=== PATIENT | female | born 1950 | race Caucasian/White ===

== ENCOUNTER → 2016-06-15 | Outpatient (CLI) | payer MEDICARE, OTHER | END | disposition home or self-care (01) | LOC: GMAL 10:31 | PROVIDERS: ATTEND Family Medicine | DX: D51.3 Other dietary vitamin B12 deficiency anemia (principal); R53.81 Other malaise; E55.9 Vitamin D deficiency, unspecified ==

== ENCOUNTER → 2016-07-27 | Outpatient (CLI) | payer MEDICARE, OTHER | END | disposition home or self-care (01) | LOC: LAB.O 10:09 | PROVIDERS: ATTEND Family Medicine | DX: A08.8 Other specified intestinal infections (principal); A08.39 Other viral enteritis ==

== ENCOUNTER → 2016-11-04 | Outpatient (CLI) | payer MEDICARE, OTHER | END | disposition home or self-care (01) | LOC: GMAL 10:37 | PROVIDERS: ATTEND Family Medicine | DX: D51.3 Other dietary vitamin B12 deficiency anemia (principal); R53.81 Other malaise; E55.9 Vitamin D deficiency, unspecified ==

== ENCOUNTER → 2016-12-06 | Outpatient (CLI) | payer MEDICARE, OTHER ==
--- NOTE | 2016-12-06 14:00 | MRI ---
EXAM DESCRIPTION: Cervical Spine CLINICAL HISTORY: CERVICALGIA. Pain radiating into the left arm. Tingling in left hand. COMPARISON: None Available. TECHNIQUE: MRI of the cervical spine is performed according to our usual protocol. FINDINGS: There is reversal of the normal cervical lordosis. Vertebral body stature is maintained. There is no acute fracture or destructive osseous lesion. Mild Modic type I endplate changes at C4-C5. Modic type II endplate changes at C5-C6. Craniocervical junction and the cervical spinal cord are unremarkable. C2-3: No significant findings. C3-4: Mild facet hypertrophy and mild uncovertebral spurring. No spinal canal or neural foraminal stenosis. C4-5: Disc desiccation with moderate disc narrowing. Mild facet hypertrophy and uncovertebral spurring. 3 mm posterior disc osteophyte complex which effaces the ventral aspect of the thecal sac. Moderate spinal canal stenosis with residual AP diameter of the thecal sac measuring 6.8 mm. Severe bilateral neural foraminal stenosis. C5-6: Disc desiccation with moderate disc narrowing. Mild facet hypertrophy and uncovertebral spurring. 3 mm posterior disc osteophyte complex which effaces the ventral aspect of the thecal sac. Material abuts the ventral aspect of the spinal cord. Moderate to severe spinal canal stenosis with residual AP diameter of the thecal sac measuring 6.5 mm. Severe left greater than right neural foraminal stenosis. C6-7: Disc desiccation with mild disc narrowing. Mild facet hypertrophy and mild uncovertebral spurring. 2 mm posterior disc osteophyte complex which flattens the ventral aspect of the thecal sac. Mild spinal canal stenosis with residual AP diameter of the thecal sac measuring 7.9 mm. Mild bilateral neural foraminal stenosis. C7-T1: No significant findings. IMPRESSION: 1. Multilevel spondylitic and facet degenerative changes throughout the cervical spine as described above. The findings are most pronounced at C5-C6 where there is moderate to severe spinal canal stenosis and severe left greater than right neural foraminal stenosis. 2. At C4-C5, there is moderate spinal canal stenosis and severe bilateral neural foraminal stenosis. 3. Other levels as detailed above. Electronically signed by: Javan Waite MD 12/06/2016 1:59 PM CDT
== END | disposition home or self-care (01) ==
LOC: MRI 09:44
PROVIDERS: ATTEND Family Medicine
DX: M47.892 Other spondylosis, cervical region (principal); M54.2 Cervicalgia

== ENCOUNTER 2017-01-14 12:53 | Emergency (ER) | payer MEDICARE, OTHER ==
[2017-01-14 13:43] VITALS: TEMP 98.9
--- NOTE | 2017-01-14 13:52 | ED.PDOC ---
History of Present Illness - General Chief Complaint: Lower Extremity Injury Stated Complaint: pain left lower extremity Time Seen by Provider: 01/14/17 13:52 Source: patient Exam Limitations: no limitations - History of Present Illness Initial Comments: Kajal Randall 66 y/o female stated that she had been having burning pains back of her left thigh which was getting worse for the last 2 weeks .Stated had epidural steroid injection on her c-spine 12/26/[facility] due to spinal stenosis with pain /tingling on arms and fingers mostly left side but stated not better.She was sent to ER for evaluation of possible blood clots on her legs.No bowel or bladder dysfunctions. Occurred: other - 2 weeks ago Pain - Lower Extremity: moderate: Left Thigh/Hip Method of Injury: unknown Improving Factors: rest Worsening Factors: movement Allergies/Adverse Reactions: Allergies NO KNOWN ALLERGY Allergy (Verified 04/27/12 13:39) Home Medications: Ambulatory Orders Alprazolam 0.5 mg PO .Q6H PRN #0 tab 09/14/13 Alprazolam [Xanax] 0.25 mg PO .Q6H #0 tab 09/14/13 Alprazolam [Xanax] 0.25 mg PO HS #0 tab 09/14/13 Aspirin [Aspirin EC] 325 mg PO DAILY #0 tab 09/14/13 Clopidogrel Bisulfate [Plavix] 75 mg PO .AM #0 tab 09/14/13 Acetaminophen W/ Codeine [Tylenol w/Codeine 300-30 mg] 1 tab PO Q4HR PRN #20 tab 01/14/17 Baclofen 20 mg PO BID #30 tab 01/14/17 Review of Systems - Review of Systems Constitutional: States: no symptoms reported EENTM: States: no symptoms reported Respiratory: States: no symptoms reported Cardiology: States: no symptoms reported Gastrointestinal/Abdominal: States: no symptoms reported Genitourinary: States: no symptoms reported Musculoskeletal: States: see HPI Neurological: States: no symptoms reported Past Medical History (General) - Patient Medical History Hx Seizures: No Hx Stroke: No Hx Asthma: No Hx of COPD: No Hx Cardiac Disorders: No Hx Pacemaker: No Hx Hypertension: No Hx Diabetes: No Hx MRSA: No Hx Other PMH: Yes - crest,fibromyalgia,spinal stenosis c-spine Surgical History: gastric bypass, other - foot,knee,hysterectomy - Social History Hx Alcohol Use: No Hx Substance Use: No Hx Physical Abuse: No Hx Emotional Abuse: No - Activities of Daily Living Patient Lives Alone: No - family Family Medical History - Family History Mother Family History: No Known Hx Cardiac Disease: Yes - parents Hx Family Diabetes: Yes - multiple family members Physical Exam - Physical Exam General Appearance: Alert, Anxious, No apparent distress Eyes, Ears, Nose, Throat: PERRL/EOMI, normal ENT inspection Neck: supple, limited range of motion - pain Cardiovascular/Respiratory: regular rate, rhythm, no M/R/G, normal peripheral pulses Gastrointestinal/Abdominal: non-tender, no organomegaly Back: normal inspection, no vertebral tenderness Thigh/Hip: non-tender, no evidence of injury Leg: non-tender, no evidence of injury Knee: non-tender, no evidence of injury Ankle: non-tender, no evidence of injury Foot: non-tender, no evidence of injury DTR - Lower Extremities: 2+: Patellar, left, Patellar, right Neuro/Tendon: normal sensation, normal motor functions Mental Status: alert, oriented x 3 Skin: normal color, cyanosis Progress - Progress Progress: 01/14/17 14:21 Vital Signs - 8 hr 01/14/17 13:20 Temperature 98.9 F Pulse Rate [ 82 right brachial] Respiratory 16 Rate Blood Pressure 148/94 [right brachial ] O2 Sat by Pulse 95 Oximetry - EKG/XRAY/CT XRAY: lumbar no acute abnormalities Xray Comments: Venous US left leg -NO DVT Departure - Departure Clinical Impression: Lumbar back pain with radiculopathy affecting left lower extremity, Pain of left leg Time of Disposition: 15:48 Disposition: Discharge to Home or Self Care Condition: Fair Departure Forms: ED Discharge - Pt. Copy, Patient Portal Self Enrollment Instructions: DI for Leg Pain, DI for Lumbar Radiculopathy, Lumbar Radiculopathy Referrals: Filipe Lloyd III, MD [Primary Care Provider] - 1-2 Weeks Prescriptions: Acetaminophen W/ Codeine [Tylenol w/Codeine 300-30 mg] 1 tab PO Q4HR PRN #20 tab PRN Reason: Pain Baclofen 20 mg PO BID #30 tab Home Medications: Ambulatory Orders Alprazolam 0.5 mg PO .Q6H PRN #0 tab 09/14/13 Alprazolam [Xanax] 0.25 mg PO .Q6H #0 tab 09/14/13 Alprazolam [Xanax] 0.25 mg PO HS #0 tab 09/14/13 Aspirin [Aspirin EC] 325 mg PO DAILY #0 tab 09/14/13 Clopidogrel Bisulfate [Plavix] 75 mg PO .AM #0 tab 09/14/13 Acetaminophen W/ Codeine [Tylenol w/Codeine 300-30 mg] 1 tab PO Q4HR PRN #20 tab 01/14/17 Baclofen 20 mg PO BID #30 tab 01/14/17 Additional Instructions: Follow up with primary md 01/17/2017 call for appointment
--- NOTE | 2017-01-14 14:33 | RAD ---
EXAM DESCRIPTION: Lumbar Spine 3 Views CLINICAL HISTORY: pain COMPARISON: None Available. TECHNIQUE: AP/lateral/coned-down lateral FINDINGS: There is good alignment of the lumbar spine. There is no fracture or bone lesion. There are no significant degenerative changes observed. IMPRESSION: Normal Study Electronically signed by: Lauro Brown MD 01/14/2017 2:32 PM CDT
--- NOTE | 2017-01-14 15:28 | US ---
EXAM DESCRIPTION: Venous,Lower Extremity LT CLINICAL HISTORY: left leg pain COMPARISON: None Available. TECHNIQUE: Left lower extremity venous duplex FINDINGS: There is no DVT identified. There is normal color flow observed with good flow augmentation. All deep veins compress normally. IMPRESSION: Negative for DVT Electronically signed by: Filipe Pacheco MD 01/14/2017 3:26 PM CDT
[2017-01-14] MEDS ORDERED: HYDROcodone 10MG/APAP 325MG 1 EA TAB PO ONE (15:42)
[2017-01-14] MEDS ORDERED: KETOROLAC TROMETHAMINE INJ 30 MG/ML VIAL IM ONE (15:42)
[2017-01-14] MEDS ORDERED: ORPHENADRINE CITRATE 30 MG/ML AMP IM ONE (15:42)
[2017-01-14 16:27] VITALS: BP 122/82; O2SAT 95
== END 2017-01-14 16:27 | disposition home or self-care (01) ==
LOC: ER 12:53
DX: M54.5 Low back pain (principal); M54.16 Radiculopathy, lumbar region; Z79.82 Long term (current) use of aspirin; Z79.02 Long term (current) use of antithrombotics/antiplatelets; Z98.84 Bariatric surgery status
CPT/HCPCS: 72100; 93971; J1885; J2360

== ENCOUNTER → 2017-01-19 | Outpatient (CLI) | payer MEDICARE, OTHER ==
--- NOTE | 2017-01-20 14:06 | MRI ---
EXAM DESCRIPTION: Lumbar Spine w/o Contrast CLINICAL HISTORY: RADICULOPATHY, LUMBAR REGION COMPARISON: MRI scan cervical spine 12/06/2016. X-ray lumbar spine 01/14/2017. TECHNIQUE: Multiplanar, multiple standard sequences, non contrast MRI, lumbar spine. FINDINGS: L5-S1: Disc desiccation. Posterior midline and left paracentral four mm bulge, contacting the descending left S1 nerve at the level of the facet. Moderate left paracentral canal narrowing. Facets and ligaments unremarkable. Mild narrowing of the bilateral foramina. L4-5: Disc desiccation. Posterior midline 3 mm bulge abutting the thecal sac. Mild to moderate canal narrowing. Bilateral moderate foraminal narrowing with disc contacting the exiting L4 nerves bilaterally. Bilateral flavum ligament hypertrophy. Disc space preserved. Minimal hypertrophy in the left facet. L3-4: Disc desiccation. No significant disc bulging. Bilateral posterior flavum ligament hypertrophy. 9. Bilateral mild foraminal narrowing. Disc space preserved. L2-3: Normal signal in the disc and disc space preserved. Minimal hypertrophy of the posterior flavum ligaments. Canal and foramina are patent. L1-2: Minimal disc desiccation. Disc space preserved. No disc bulging. Minimal hypertrophy of the flavum ligaments. T12-L1: No disc desiccation. Disc space preserved. Canal and foramina are patent. Conus terminates at this level. Paravertebral soft tissues are unremarkable. Normal marrow signal in the remaining vertebral bodies and the posterior elements. Vertebral bodies are not compressed at any level. IMPRESSION: 1. Left posterior focal bulge or small protrusion of the L5-S1 desiccated disc, abutting the descending left S1 nerve. Correlate for radiculopathy. 2. Posterior midline bulge of the desiccated L4-5 disc contacting the thecal sac. Electronically signed by: Aaron Wetzel MD 01/20/2017 2:04 PM CDT
== END ==
LOC: MRI 13:57
PROVIDERS: ATTEND Physical Medicine & Rehabilitation
DX: M51.16 Intervertebral disc disorders with radiculopathy, lumbar region (principal)

== ENCOUNTER 2018-01-03 21:47 | Emergency (ER) | payer MEDICARE, BC ==
--- NOTE | 2018-01-03 23:29 | ED.PDOC ---
History of Present Illness - General Chief Complaint: Abdominal Pain Stated Complaint: abdominal pain Time Seen by Provider: 01/03/18 23:12 Information Source: patient Exam Limitations: no limitations - History of Present Illness Initial Comments: Kajal Randall 67 y/o female came to ER with sharp mid abdominal pains since this morning no nausea/vomiting able to eat a little bit and had several loose stool yesterday.Stated she had skin abscess genital area and took oral antibiotics Bactrim and was also given Rocephin injection IM this am at her Md' s office..Stated pains radiated to upper chest both shoulders and mid back. Also took multiple doses of Ibuprofen/Tylenol for pain on her skin abscess this am. Abdominal Pain Onset Location: other - mid abdomen Pain Radiation: shoulder, chest, back Quality: sharpness Timing/Duration: 7-24 hours Improving Factors: nothing Worsening Factors: nothing Associated Symptoms: other - see hpi Review of Systems - Review of Systems Constitutional: States: no symptoms reported EENTM: States: no symptoms reported Respiratory: States: no symptoms reported Cardiology: States: see HPI Gastrointestinal/Abdominal: States: see HPI Genitourinary: States: no symptoms reported Musculoskeletal: States: joint pain - chronic joint pains Past Medical History (General) - Patient Medical History Hx Seizures: No Hx Stroke: No Hx Asthma: No Hx of COPD: No Hx Cardiac Disorders: No Hx Pacemaker: No Hx Hypertension: No Hx Diabetes: No Hx MRSA: No Hx Other PMH: Yes - CREST,fibromyalgia,spinal stenosis c- spine Surgical History: gastric bypass, other - hysterectomy,foot ,knee - Social History Hx Alcohol Use: No Hx Substance Use: No Hx Physical Abuse: No Hx Emotional Abuse: No Family Medical History - Family History Mother Family History: No Known Hx Cardiac Disease: Yes - parents Hx Family Diabetes: Yes - multiple family members Hx Family;Other: aortic aneurysm Physical Exam - Physical Exam General Appearance: Alert, Comfortable, No apparent distress Eyes, Ears, Nose, Throat Exam: normal ENT inspection Neck: non-tender, supple, normal inspection Respiratory: chest non-tender, lungs clear, normal breath sounds, no respiratory distress Cardiovascular/Chest: normal peripheral pulses, regular rate, rhythm, no murmur Peripheral Pulses: No deficit Gastrointestinal/Abdominal: non tender, soft, no organomegaly Back Exam: normal inspection, no CVA tenderness, no vertebral tenderness Extremity: normal inspection, no calf tenderness, pedal edema - 2 + Neurologic: alert, oriented x 3 Skin Exam: normal color, warm/dry Lymphatic: no adenopathy Progress - Progress Progress: 01/04/18 01:26 Vital Signs - 8 hr 01/04/18 00:03 Temperature 99.3 F Pulse Rate [ 76 Right] Respiratory 18 Rate Blood Pressure 163/85 [Left Arm] O2 Sat by Pulse 96 Oximetry 01/04/18 05:28 abdomen less painful;she stated it might have been the bactrim and nsaid that she took which cause her abdominal pain symptoms 01/04/18 05:28 - Results/Orders Results/Orders: 01/03/18 23:30 URINALYSIS Stat 01/04/18 00:11 B-TYPE NATRIURETIC PEPTIDE/BNP Stat CARDIAC ENZYME GROUP Stat 01/04/18 00:56 EKG Assessment ONCE 01/04/18 01:00 EKG STAT 01/04/18 01:01 D-DIMER,QUANTITATIVE Stat 01/04/18 01:24 CTA Chest [CT] Stat Laboratory Results - last 24 hr 01/04/18 01/04/18 01/04/18 00:11 00:12 00:12 WBC 5.9 RBC 5.15 Hgb 15.4 Hct 45.8 MCV 88.8 MCH 29.8 MCHC 33.6 RDW 13.3 Plt Count 247 MPV 6.8 L Absolute Neuts (auto) 4.40 Absolute Lymphs (auto) 0.90 L Absolute Monos (auto) 0.50 Absolute Eos (auto) 0.10 Absolute Basos (auto) 0.00 Neutrophils % 73.7 Lymphocytes % 15.3 L Monocytes % 8.5 Eosinophils % 1.9 Basophils % 0.6 Sodium Potassium Chloride Carbon Dioxide Anion Gap BUN Creatinine BUN/Creatinine Ratio Random Glucose Serum Osmolality Calcium Total Bilirubin AST ALT Alkaline Phosphatase Creatine Kinase 45 CK-MB (CK-2) 1.0 CK-MB (CK-2) % Not Reportable Troponin I < 0.02 Serum Total Protein Albumin Globulin Albumin/Globulin Ratio Urine Color Yellow Urine Appearance Clear Urine pH 6.0 Ur Specific Humble 1.020 Urine Protein Negative Urine Glucose (UA) Negative Urine Ketones Negative Urine Blood Large H Urine Nitrite Negative Urine Bilirubin Negative Urine Urobilinogen 1.0 Ur Leukocyte Esterase Negative Urine RBC 40-50 H Urine WBC 5-10 H Ur Epithelial Cells 1-3 Urine Bacteria Rare 01/04/18 00:12 WBC RBC Hgb Hct MCV MCH MCHC RDW Plt Count MPV Absolute Neuts (auto) Absolute Lymphs (auto) Absolute Monos (auto) Absolute Eos (auto) Absolute Basos (auto) Neutrophils % Lymphocytes % Monocytes % Eosinophils % Basophils % Sodium 138 Potassium 4.6 Chloride 101 Carbon Dioxide 25 Anion Gap 16.6 BUN 19 H Creatinine 0.87 BUN/Creatinine Ratio 21.8 H Random Glucose 119 H Serum Osmolality 279.1 Calcium 9.1 Total Bilirubin 0.9 AST 707 H ALT 566 H Alkaline Phosphatase 57 Creatine Kinase CK-MB (CK-2) CK-MB (CK-2) % Troponin I Serum Total Protein 7.1 Albumin 3.8 Globulin 3.3 Albumin/Globulin Ratio 1.2 Urine Color Urine Appearance Urine pH Ur Specific Humble Urine Protein Urine Glucose (UA) Urine Ketones Urine Blood Urine Nitrite Urine Bilirubin Urine Urobilinogen Ur Leukocyte Esterase Urine RBC Urine WBC Ur Epithelial Cells Urine Bacteria 01/04/18 01:00 EKG STAT 01/04/18 02:48 Sodium Chloride 0.9% 1000ML [Ns 1000 ml] 1,000 ml IVS ONCE 01/04/18 03:12 TROPONIN-I Stat Laboratory Results - last 24 hr 01/04/18 01/04/18 01/04/18 00:11 00:12 00:12 WBC 5.9 RBC 5.15 Hgb 15.4 Hct 45.8 MCV 88.8 MCH 29.8 MCHC 33.6 RDW 13.3 Plt Count 247 MPV 6.8 L Absolute Neuts (auto) 4.40 Absolute Lymphs (auto) 0.90 L Absolute Monos (auto) 0.50 Absolute Eos (auto) 0.10 Absolute Basos (auto) 0.00 Neutrophils % 73.7 Lymphocytes % 15.3 L Monocytes % 8.5 Eosinophils % 1.9 Basophils % 0.6 D-Dimer, Quantitative Sodium Potassium Chloride Carbon Dioxide Anion Gap BUN Creatinine BUN/Creatinine Ratio Random Glucose Serum Osmolality Calcium Total Bilirubin AST ALT Alkaline Phosphatase Creatine Kinase 45 CK-MB (CK-2) 1.0 CK-MB (CK-2) % Not Reportable Troponin I < 0.02 B-Natriuretic Peptide 18.7 Serum Total Protein Albumin Globulin Albumin/Globulin Ratio Lipase Urine Color Yellow Urine Appearance Clear Urine pH 6.0 Ur Specific Humble 1.020 Urine Protein Negative Urine Glucose (UA) Negative Urine Ketones Negative Urine Blood Large H Urine Nitrite Negative Urine Bilirubin Negative Urine Urobilinogen 1.0 Ur Leukocyte Esterase Negative Urine RBC 40-50 H Urine WBC 5-10 H Ur Epithelial Cells 1-3 Urine Bacteria Rare 01/04/18 01/04/18 01/04/18 00:12 01:01 02:33 WBC RBC Hgb Hct MCV MCH MCHC RDW Plt Count MPV Absolute Neuts (auto) Absolute Lymphs (auto) Absolute Monos (auto) Absolute Eos (auto) Absolute Basos (auto) Neutrophils % Lymphocytes % Monocytes % Eosinophils % Basophils % D-Dimer, Quantitative 1.88 H* Sodium 138 Potassium 4.6 Chloride 101 Carbon Dioxide 25 Anion Gap 16.6 BUN 19 H Creatinine 0.87 BUN/Creatinine Ratio 21.8 H Random Glucose 119 H Serum Osmolality 279.1 Calcium 9.1 Total Bilirubin 0.9 AST 707 H ALT 566 H Alkaline Phosphatase 57 Creatine Kinase CK-MB (CK-2) CK-MB (CK-2) % Troponin I B-Natriuretic Peptide Serum Total Protein 7.1 Albumin 3.8 Globulin 3.3 Albumin/Globulin Ratio 1.2 Lipase 21 L Urine Color Urine Appearance Urine pH Ur Specific Humble Urine Protein Urine Glucose (UA) Urine Ketones Urine Blood Urine Nitrite Urine Bilirubin Urine Urobilinogen Ur Leukocyte Esterase Urine RBC Urine WBC Ur Epithelial Cells Urine Bacteria Discuss test result with patient normal ekg and cardiac enzymes;but LFT elevated that she needs to see GI specialist for further evaluation of abnormal liver test;also discuss result of Ct-chest;abdo/pelvis showing no acute findings for her abdominal pain symptoms.Also talked to her about blood in urine stated it came out from her skin abscess that popped yesterday which is still bleeding. 01/04/18 01:00 EKG STAT 01/04/18 04:00 ACETAMINOPHEN Stat Laboratory Results - last 24 hr 01/04/18 01/04/18 01/04/18 00:11 00:12 00:12 WBC 5.9 RBC 5.15 Hgb 15.4 Hct 45.8 MCV 88.8 MCH 29.8 MCHC 33.6 RDW 13.3 Plt Count 247 MPV 6.8 L Absolute Neuts (auto) 4.40 Absolute Lymphs (auto) 0.90 L Absolute Monos (auto) 0.50 Absolute Eos (auto) 0.10 Absolute Basos (auto) 0.00 Neutrophils % 73.7 Lymphocytes % 15.3 L Monocytes % 8.5 Eosinophils % 1.9 Basophils % 0.6 D-Dimer, Quantitative Sodium Potassium Chloride Carbon Dioxide Anion Gap BUN Creatinine BUN/Creatinine Ratio Random Glucose Serum Osmolality Calcium Total Bilirubin AST ALT Alkaline Phosphatase Creatine Kinase 45 CK-MB (CK-2) 1.0 CK-MB (CK-2) % Not Reportable Troponin I < 0.02 B-Natriuretic Peptide 18.7 Serum Total Protein Albumin Globulin Albumin/Globulin Ratio Lipase Urine Color Yellow Urine Appearance Clear Urine pH 6.0 Ur Specific Humble 1.020 Urine Protein Negative Urine Glucose (UA) Negative Urine Ketones Negative Urine Blood Large H Urine Nitrite Negative Urine Bilirubin Negative Urine Urobilinogen 1.0 Ur Leukocyte Esterase Negative Urine RBC 40-50 H Urine WBC 5-10 H Ur Epithelial Cells 1-3 Urine Bacteria Rare 01/04/18 01/04/18 01/04/18 00:12 01:01 02:33 WBC RBC Hgb Hct MCV MCH MCHC RDW Plt Count MPV Absolute Neuts (auto) Absolute Lymphs (auto) Absolute Monos (auto) Absolute Eos (auto) Absolute Basos (auto) Neutrophils % Lymphocytes % Monocytes % Eosinophils % Basophils % D-Dimer, Quantitative 1.88 H* Sodium 138 Potassium 4.6 Chloride 101 Carbon Dioxide 25 Anion Gap 16.6 BUN 19 H Creatinine 0.87 BUN/Creatinine Ratio 21.8 H Random Glucose 119 H Serum Osmolality 279.1 Calcium 9.1 Total Bilirubin 0.9 AST 707 H ALT 566 H Alkaline Phosphatase 57 Creatine Kinase CK-MB (CK-2) CK-MB (CK-2) % Troponin I B-Natriuretic Peptide Serum Total Protein 7.1 Albumin 3.8 Globulin 3.3 Albumin/Globulin Ratio 1.2 Lipase 21 L Urine Color Urine Appearance Urine pH Ur Specific Humble Urine Protein Urine Glucose (UA) Urine Ketones Urine Blood Urine Nitrite Urine Bilirubin Urine Urobilinogen Ur Leukocyte Esterase Urine RBC Urine WBC Ur Epithelial Cells Urine Bacteria 01/04/18 04:00 WBC RBC Hgb Hct MCV MCH MCHC RDW Plt Count MPV Absolute Neuts (auto) Absolute Lymphs (auto) Absolute Monos (auto) Absolute Eos (auto) Absolute Basos (auto) Neutrophils % Lymphocytes % Monocytes % Eosinophils % Basophils % D-Dimer, Quantitative Sodium Potassium Chloride Carbon Dioxide Anion Gap BUN Creatinine BUN/Creatinine Ratio Random Glucose Serum Osmolality Calcium Total Bilirubin AST ALT Alkaline Phosphatase Creatine Kinase CK-MB (CK-2) CK-MB (CK-2) % Troponin I < 0.02 B-Natriuretic Peptide Serum Total Protein Albumin Globulin Albumin/Globulin Ratio Lipase Urine Color Urine Appearance Urine pH Ur Specific Humble Urine Protein Urine Glucose (UA) Urine Ketones Urine Blood Urine Nitrite Urine Bilirubin Urine Urobilinogen Ur Leukocyte Esterase Urine RBC Urine WBC Ur Epithelial Cells Urine Bacteria Abnormal Lab Results 01/04/18 01/04/18 01/04/18 00:12 00:12 00:12 MPV 6.8 L Absolute Lymphs (auto) 0.90 L Lymphocytes % 15.3 L D-Dimer, Quantitative BUN 19 H BUN/Creatinine Ratio 21.8 H Random Glucose 119 H AST 707 H ALT 566 H Lipase Urine Blood Large H Urine RBC 40-50 H Urine WBC 5-10 H Acetaminophen 01/04/18 01/04/18 01/04/18 01:01 02:33 04:00 MPV Absolute Lymphs (auto) Lymphocytes % D-Dimer, Quantitative 1.88 H* BUN BUN/Creatinine Ratio Random Glucose AST ALT Lipase 21 L Urine Blood Urine RBC Urine WBC Acetaminophen < 10.0 L - EKG/XRAY/CT EKG: Sinus, no ST T wave changes Comments: HR-86;NSR XRAY: chest - tortousity aorta O/W no acute abnormalities CT: ABD/P- no acute findings noted CT Ordered: Yes - Chest -CTA-no PE no aneurysm Departure - Departure Clinical Impression: Abnormal liver enzymes, Elevated d-dimer Abdominal pain Qualifiers: Abdominal location: upper abdomen, unspecified Qualified Code(s): R10.10 - Upper abdominal pain, unspecified Chest pain Qualifiers: Chest pain type: unspecified Qualified Code(s): R07.9 - Chest pain, unspecified Hematuria Qualifiers: Hematuria type: unspecified type Qualified Code(s): R31.9 - Hematuria, unspecified Time of Disposition: Disposition: Discharge to Home or Self Care Departure Forms: ED Discharge - Pt. Copy, Patient Portal Self Enrollment Instructions: DI for Abdominal Pain-Adult Referrals: Filipe Lloyd III, MD [Primary Care Provider] - 1-2 Weeks Home Medications: Ambulatory Orders Alprazolam 0.5 mg PO .Q6H PRN #0 tab 05/23/14 Alprazolam [Xanax] 0.25 mg PO .Q6H #0 tab 09/14/13 Alprazolam [Xanax] 0.25 mg PO HS #0 tab 09/14/13 Aspirin [Aspirin EC] 325 mg PO DAILY #0 tab 09/14/13 Clopidogrel Bisulfate [Plavix] 75 mg PO .AM #0 tab 09/14/13 Acetaminophen W/ Codeine [Tylenol w/Codeine 300-30 mg] 1 tab PO Q4HR PRN #20 tab 01/14/17 Baclofen 20 mg PO BID #30 tab 01/14/17 Additional Instructions: Follow up with primary Md 05 January 2018 call Md's office today;Return to ER as needed;Avoid taking more than required dose of Tylenol and Ibuprofen as written on package insert May take Ranitidine-75 mg(over the counter) 2 tablets am/pm
--- NOTE | 2018-01-04 00:27 | RAD ---
EXAM DESCRIPTION: Chest,1 View CLINICAL HISTORY: 67 years Female, abd pain COMPARISON: AP chest September 13, 2013 FINDINGS: No consolidation. No pneumothorax. No significant pleural effusion. Cardiac silhouette appears normal in size. Aortic atherosclerosis and tortuosity is present Degenerative changes of the spine noted. IMPRESSION: No acute findings. Electronically signed by: Khoa Driscoll MD 01/04/2018 12:25 AM CDT
[2018-01-04] MEDS ORDERED: MORPHINE SULFATE INJ 10 MG/ML VIAL IV ONE ×2 (01:36→03:12)
[2018-01-04] MEDS ORDERED: PANTOPRAZOLE INJECTION 80 MG in SODIUM CHLORIDE 0.9% 100ML 80 ML IVPB ONE (01:38)
[2018-01-04] MEDS ORDERED: SODIUM CHLORIDE 0.9% 100ML 100 ML IVPB ONE (01:46)
[2018-01-04] MEDS ORDERED: PANTOPRAZOLE SODIUM IV 40 MG VIAL ONE (01:46)
[2018-01-04] MEDS ORDERED: ONDANSETRON INJ 4 MG/2 ML VIAL ONE (01:46)
[2018-01-04] MEDS ORDERED: ONDANSETRON INJ 4 MG/2 ML VIAL IV ONE (01:48)
[2018-01-04] MEDS ORDERED: SODIUM CHLORIDE 0.9% 1000ML 1,000 ML IVS ONE (02:48)
--- NOTE | 2018-01-04 02:51 | CT ---
EXAM: CT CHEST ANGIOGRAPHY WITH IV CONTRAST, CT ABDOMEN PELVIS WITH IV CONTRAST HISTORY: chest pains/intersacapular pain r/o thoracic AA COMPARISON: CT abdomen pelvis March 01, 2016 TECHNIQUE: Multiple helical axial tomographic images were obtained of the chest following administration of intravenous contrast per angiographic protocol. Subsequent axial images were obtained of the abdomen and pelvis. Coronal, sagittal, and MIP reformatted images of the chest were obtained. Coronal and sagittal reformatted images of the abdomen and pelvis were obtained. This exam was performed according to our departmental dose-optimization program, which includes automated exposure control, adjustment of the mA and/or kV according to patient size and/or use of iterative reconstruction technique. FINDINGS: CT CHEST: Thyroid gland: unremarkable. Axilla: unremarkable. Pulmonary arteries: Evaluation of the peripheral pulmonary arteries is limited secondary suboptimal contrast opacification. Central pulmonary arteries appear patent. No obvious pulmonary embolism within the main, right/left, lobar, or proximal segmental pulmonary arteries. Aorta: Aortic atherosclerosis is present. No evidence of aortic dissection or aneurysm. Mediastinum: Unremarkable. No adenopathy. Heart: Heart is normal in size. Coronary artery atherosclerosis noted. Lungs/airways: No consolidation. Airways are patent. Mild segmental atelectasis versus scarring in the lung bases noted. Pleural spaces: No significant pleural effusion. No pneumothorax. Osseous: Thoracic spine osteophytes are present. Soft tissues: Unremarkable. CT ABDOMEN PELVIS: Liver: [Homogenous attenuation is noted.] Gallbladder/biliary: [Gallbladder is surgically absent. Common bile duct measures up to 1 cm in width proximally which is nonspecific in the setting of prior cholecystectomy and unchanged.] Pancreas: [Unremarkable. No evidence of ductal enlargement.] Spleen: Appears unremarkable. No splenomegaly. Adrenals: Unremarkable. Kidneys and ureters: [No evidence of hydronephrosis. Normal enhancement.] Bladder: Unremarkable. Pelvic organs: Post hysterectomy changes demonstrated. Bowel: [Postoperative changes of gastric bypass noted. No evidence of bowel obstruction. No bowel wall thickening.] Appendix appears unremarkable. Vasculature: Unremarkable. Peritoneum: No free air. No significant free fluid. Lymph nodes: Unremarkable. Soft tissues: Postoperative changes of the ventral abdominal wall noted. Bones: No acute findings. Mild posterior disc bulging at L4-5 demonstrated with mild central canal narrowing. Impression: No evidence for an acute process within the chest, abdomen, or pelvis. Electronically signed by: Khoa Driscoll MD 01/04/2018 2:50 AM CDT
[2018-01-04] MEDS ORDERED: ALUM & MAG HYDROX-SIMETHICONE 30 ML, LIDOCAINE VISCOUS 2% 15 ML PO ONE ×2 (03:12)
[2018-01-04] MEDS ORDERED: SUCRALFATE 1 GM/10 ML 1 GM UD PO ONE (03:12)
[2018-01-04] MEDS ORDERED: ALUM & MAG HYDROX-SIMETHICONE 30 ML UD ONE (03:54)
[2018-01-04] MEDS ORDERED: LIDOCAINE HCL 2% (MOUTH-THROAT) 15 ML UD ONE (03:54)
[2018-01-04 05:33] VITALS: BP 147/83; TEMP 98.4; O2SAT 98
== END 2018-01-04 05:50 | disposition home or self-care (01) ==
LOC: ER 21:47
DX: R10.10 Upper abdominal pain, unspecified (principal); R07.9 Chest pain, unspecified; R79.89 Other specified abnormal findings of blood chemistry; R31.9 Hematuria, unspecified; M79.7 Fibromyalgia; Z79.82 Long term (current) use of aspirin; Z79.899 Other long term (current) drug therapy; Z98.84 Bariatric surgery status
CPT/HCPCS: 71045; 71275; 74177; 80053; 80329; 81001; 82550; 82553; 83690; 83880; 84484; 85025; 85379; 93005; J2270; J2405; J7030; J7050

== ENCOUNTER → 2018-01-12 | Outpatient (CLI) | payer MEDICARE, BC | LOC: GMAL 11:25 | PROVIDERS: ATTEND Family Medicine | DX: D51.3 Other dietary vitamin B12 deficiency anemia (principal); R53.81 Other malaise; E55.9 Vitamin D deficiency, unspecified; D50.8 Other iron deficiency anemias ==

== ENCOUNTER → 2018-04-12 | Outpatient (CLI) | payer MEDICARE | LOC: GMAL 17:13 | PROVIDERS: ATTEND Family Medicine | DX: R94.5 Abnormal results of liver function studies (principal) ==

== ENCOUNTER → 2018-08-28 | Outpatient (CLI) | payer MEDICARE ==
--- NOTE | 2018-08-28 15:33 | MRI ---
EXAM DESCRIPTION: Lumbar Spine w/o Contrast : Magnetic Resonance Imaging. CLINICAL HISTORY: LOW BACK PAIN COMPARISON: MRI scan lumbar spine without contrast 01/19/2017. TECHNIQUE: Multiplanar, multiple standard sequences, non contrast MRI, lumbar spine. FINDINGS: L5-S1: Disc desiccation with disc space maintained. Tiny posterior midline bulge. Mild canal narrowing. Bilateral moderate foraminal narrowing more right than left. Stable since the prior study. L4-L5: Midline focal protrusion 4 to 5 mm impressing on the midline thecal sac and extrusion below the disc space and L5 endplate effacing the subarticular recess with possible displacement of the descending left L5 nerve. This has progressed since the prior study. Disc bulge and endplate spurs encroaching on the left foramen which is stenotic. Stable since the prior study. Moderate to severe narrowing of the right foramen secondary to bulging disc. Progressed since the prior study. L3-L4: Disc desiccation with disc space maintained. Disc bulge into the left foramen abutting the left L3 nerve. Moderate narrowing of the right foramen. Hypertrophic facet arthrosis and thickened flavum ligaments contributing to moderate canal narrowing. Stable since the prior study. L2-L3: Normal signal in the disc and disc space preserved. Bilateral thickened flavum ligaments the canal is patent. Bilateral foramina are patent. L1-L2: Disc space maintained with minimal disc desiccation. Bilateral thickened flavum ligaments. Canal and foramina are patent. Conus terminates at L1. T12-L1: Normal signal in the disc and disc space maintained. Minimal thickening of the flavum ligaments. Canal and bilateral foramina are patent. L3-S1 levoscoliosis. Paravertebral soft tissues negative.. Otherwise normal marrow signal in the remaining vertebral bodies and the posterior elements. Vertebral bodies are not compressed at any level. IMPRESSION: 1. Bilateral moderate foraminal narrowing more on the right at L5-S1, with posterior midline disc bulge, stable since the prior study. 2. Herniation at L4-5 disc and extrusion below the disc space encroaching on the left subarticular recess and the descending left L5 nerve which is new since the prior study. Also disc bulging into the right foramen causing moderate to severe narrowing has progressed since the prior study. 3. Disc bulge at L3-4 abutting the left L3 nerve in the foramen and moderate canal narrowing due to hypertrophy and arthrosis in the posterior elements is stable since the prior study. Electronically signed by: Aaron Wetzel MD 08/28/2018 3:31 PM CDT
== END ==
LOC: MRI 07:56
PROVIDERS: ATTEND Family Medicine
DX: M51.86 Other intervertebral disc disorders, lumbar region (principal); M51.26 Other intervertebral disc displacement, lumbar region

== ENCOUNTER → 2019-12-05 | Outpatient (CLI) | payer MEDICARE ==
--- NOTE | 2019-12-06 13:59 | US ---
EXAM DESCRIPTION: Carotid Duplex: ULTRASOUND. CLINICAL HISTORY: 69 years Female CAROTID ATHEROSCLEROSIS COMPARISON: None. TECHNIQUE: Transcutaneous scanning utilizing naranjo-scale and Doppler modes to evaluate the bilateral carotid systems and vertebral arteries. Percentage of diameter of stenosis or no stenosis recorded will be based upon NASCET criteria. FINDINGS: Peak systolic/end diastolic velocities (CM-Sec) CCA Right 78/12 Left 61/9. ICA Right proximal 40/12, distal 56/19. Left proximal 44/13, Distal 58/21. Vertebral Right 47/12 Left 35/12. ECA (PS Only) Right 85 left 58. ICA/CCA peak systolic velocity ratio: Right 0.7 Left 1.0 ICA/CCA end diastolic velocity ratio: Right 1.6 Left 2.3 Vertebral arteries: antegrade flow. Comments Comments: Atherosclerotic calcification bilateral common carotid bones and proximal ICAs vessels. Right mid CCA bulb: Area stenosis. 37% and diameter stenosis 25%. Proximal ICA: Area stenosis 44% and diameter stenosis 49%. Left proximal ICA: Area stenosis 44% and diameter stenosis 60%. No spectral broadening or color turbulent flow. IMPRESSION: 1. Doppler evaluation of the bilateral carotid systems and vertebral arteries shows no hemodynamically significant stenoses (less than 70%). 2. Moderate amount of plaque in the carotid arteries bilaterally. Bilateral vertebral arteries showed antegrade-cephalad flow. Electronically signed by: Aaron Wetzel MD 12/06/2019 1:57 PM CDT
== END ==
LOC: US 15:14
PROVIDERS: ATTEND Emergency Medicine
DX: I65.23 Occlusion and stenosis of bilateral carotid arteries (principal)